=== PATIENT | female | born 1985 | race Hispanic/Latino ===

== ENCOUNTER → 2020-02-19 | Outpatient (CLI) | payer OTHER ==
--- NOTE | 2020-02-19 13:05 | REP ---
INDICATION: DATING AND VIABILITY COMPARISON: None. TECHNIQUE: Transabdominal and transvaginal 1st trimester obstetrical ultrasound with color Doppler evaluation. FINDINGS: Uterus measures 9.7 x 5.6 x 5.8 cm with decidual reaction and presumed empty gestational sac. Mean sac diameter of 10 mm corresponds to 5 weeks 5 days gestational age. Bilateral maternal ovaries are normal in appearance. IMPRESSION: Findings suggest early . Differential diagnosis includes blighted ovum and less likely pseudo gestational sac related to ectopic . Correlation with serial HCG levels recommended and repeat ultrasound as necessary. <Electronically signed by Rio Woodward > 02/19/20 [id number]
== END ==
LOC: M RAD 12:25
PROVIDERS: ATTEND Nurse Practitioner Women's Health
DX: Z36.89 Encounter for other specified antenatal screening (principal); Z3A.01 Less than 8 weeks gestation of pregnancy

== ENCOUNTER → 2020-03-13 | Outpatient (CLI) | payer OTHER ==
--- NOTE | 2020-03-13 13:08 | REP ---
INDICATION: VIABILITY COMPARISON: None. TECHNIQUE: Transabdominal and transvaginal 1st trimester obstetrical ultrasound with color Doppler evaluation. FINDINGS: Anteverted uterus measures 10.9 x 4.8 x 6.1 cm. A gestational sac with pole is appreciated with a CRL of 5.9 mm corresponding to 6 weeks 3 days gestational age. However, no cardiac activity is identified and findings are suspicious for demise. Maternal ovaries are normal. No pelvic free fluid. IMPRESSION: pole measuring at 6 weeks 3 days gestational age without cardiac activity. Findings concerning for demise. Correlation with serial HCG levels and repeat ultrasound are recommended. <Electronically signed by Rio Woodward > 03/13/20 [id number]
== END ==
LOC: M RAD 11:08
PROVIDERS: ATTEND Obstetrics & Gynecology
DX: Z36.9 Encounter for antenatal screening, unspecified (principal); Z3A.01 Less than 8 weeks gestation of pregnancy

== ENCOUNTER → 2020-09-16 | Outpatient (CLI) | payer OTHER ==
[2020-09-16 16:32] LABS: HEMATOCRIT 38.7 % (36.0-47.0); HEMOGLOBIN 12.2 g/dl (12.0-15.5); MEAN CORPUSCULAR HEMOGLOBIN 25.6 pg (27.0-33.0); MEAN CORPUSCULAR HGB CONC 31.5 g/dl (32.0-36.5); MEAN CORPUSCULAR VOLUME 81.1 fl (80.0-96.0); PLATELET COUNT, AUTOMATED 164 10^3/uL (150-450); RED BLOOD COUNT 4.77 10^6/uL (4.00-5.40); WHITE BLOOD COUNT 7.6 10^3/uL (4.0-10.0)
[2020-09-16 16:44] LABS: TOTAL PROTEIN,RANDOM URINE 9.5 MG/DL (0.0-12.0)
[2020-09-16 16:56] LABS: ALT/SGPT 22 U/L (12-78); BILIRUBIN,TOTAL 0.3 MG/DL (0.2-1.0); FREE T4 1.14 NG/DL (0.76-1.46); GLOMERULAR FILTRATION RATE > 60.0 (>60); LDH LACTATE DEHYDROGENASE 117 U/L (84-246); THYROID STIMULATING HORMONE 0.503 uIU/ML (0.358-3.740); URIC ACID 3.3 MG/DL (2.6-6.0)
[2020-09-16 17:55] LABS: HEPATITIS C VIRUS ABY INDEX 0.1 INDEX (<0.8); HIV 1&2 SCREEN CENTAUR NEGATIVE (NEGATIVE)
[2020-09-16 18:10] LABS: GC DNA AMPLIFICATION NEGATIVE (NEGATIVE)
== END ==
LOC: M PLALAB 11:27
PROVIDERS: ATTEND Advanced Practice Midwife
DX: O34.211 Maternal care for low transverse scar from previous cesarean delivery (principal); Z3A.00 Weeks of gestation of pregnancy not specified

== ENCOUNTER → 2020-10-14 | Outpatient (REF) | payer OTHER | LOC: M SFHCWAGY 12:38 | PROVIDERS: ATTEND Advanced Practice Midwife | DX: N39.0 Urinary tract infection, site not specified (principal) ==

== ENCOUNTER → 2020-11-17 | Outpatient (CLI) | payer OTHER ==
[~2020-11-17] MED LIST: COLA100C5 PO; IBUP80TA PO; PERCOCET PO
== END ==
LOC: M WHC 09:09
PROVIDERS: ATTEND Advanced Practice Midwife
DX: O34.211 Maternal care for low transverse scar from previous cesarean delivery (principal)

== ENCOUNTER → 2020-12-16 | Outpatient (CLI) | payer OTHER ==
--- NOTE | 2020-12-16 14:28 | REP ---
INDICATION: F/U ANATOMY COMPARISON: 11/17/2020 TECHNIQUE: Transabdominal obstetrical ultrasound with color Doppler evaluation. FINDINGS: Examination demonstrates a single live intrauterine in variable presentation. motion is identified by technologist. Placenta is noted posterior and earlier grade 1 without evidence for placenta previa or abruption. Amniotic fluid volume is normal. Cervix measures 4.3 cm in length and appears closed.. Selected gestational age: 23 weeks 6 days with RAVI 04/08/2021. Gestational age by current measurements 23 weeks 4 days with RAVI 04/10/2021. FHR equals 160 beats per minute. Estimated weight 616 grams (33rdpercentile). Anatomical assessment demonstrates normal structures including four-chamber heart/ventricular outflow tracts, and spine. IMPRESSION: Single live intrauterine in variable presentation demonstrating appropriate estimated weight and growth. In conjunction with prior examination anatomical assessment is complete and normal. <Electronically signed by Rio Woodward > 12/16/20 [id number]
== END ==
LOC: M WHC 10:52
PROVIDERS: ATTEND Obstetrics & Gynecology
DX: O09.522 Supervision of elderly multigravida, second trimester (principal)

== ENCOUNTER → 2020-12-16 | Outpatient (REF) | payer OTHER | LOC: M SFHCWAGY 16:49 | PROVIDERS: ATTEND Obstetrics & Gynecology | DX: O09.522 Supervision of elderly multigravida, second trimester (principal) ==

== ENCOUNTER → 2021-01-14 | Outpatient (CLI) | payer OTHER ==
[2021-01-14 17:37] LABS: HEMOGLOBIN 10.7 g/dl (12.0-15.5); MEAN CORPUSCULAR HEMOGLOBIN 27.1 pg (27.0-33.0); MEAN CORPUSCULAR HGB CONC 30.6 g/dl (32.0-36.5); MEAN CORPUSCULAR VOLUME 88.6 fl (80.0-96.0); PLATELET COUNT, AUTOMATED 130 10^3/uL (150-450); RED BLOOD COUNT 3.95 10^6/uL (4.00-5.40); WHITE BLOOD COUNT 8.4 10^3/uL (4.0-10.0)
[2021-01-14 20:58] LABS: GC DNA AMPLIFICATION NEGATIVE (NEGATIVE)
== END ==
LOC: M PLALAB 14:03
PROVIDERS: ATTEND Specialist
DX: Z34.82 Encounter for supervision of other normal pregnancy, second trimester (principal)

== ENCOUNTER 2021-06-29 18:07 | Emergency (ER) | payer OTHER ==
[~2021-06-29] VITALS: Ht 165.1 cm; Wt 76.1 kg
[2021-06-29] MEDS ORDERED: NORCO, ANEXSIA 5/325MG TABLET (HYDROcodone/ACETAMINOPHEN) PO ONE (22:10)
[2021-06-29] MEDS ORDERED: HYDR-3713 PO (22:11)
[2021-06-29 22:20] VITALS: BP 149/74
== END 2021-06-29 22:30 | disposition home or self-care (01) ==
LOC: M ED 18:07
DX: S82.64XA Nondisplaced fracture of lateral malleolus of right fibula, initial encounter for closed fracture (principal); W10.9XXA Fall (on) (from) unspecified stairs and steps, initial encounter; Y92.009 Unspecified place in unspecified non-institutional (private) residence as the place of occurrence of the external cause; Y93.9 Activity, unspecified; Y99.9 Unspecified external cause status

== ENCOUNTER → 2021-07-07 | Outpatient (CLI) | payer OTHER ==
[~2021-07-07] MED LIST changes: +HYDR-3713 PO
== END ==
LOC: M SOG 09:07
PROVIDERS: ATTEND Physician Assistant
DX: S93.401A Sprain of unspecified ligament of right ankle, initial encounter (principal); S82.61XA Displaced fracture of lateral malleolus of right fibula, initial encounter for closed fracture; W18.30XA Fall on same level, unspecified, initial encounter; Y92.009 Unspecified place in unspecified non-institutional (private) residence as the place of occurrence of the external cause